=== PATIENT | male | born 1970 | race Two or more races ===

== ENCOUNTER 2016-12-31 15:57 | Emergency (ER) | payer OTHER ==
[~2016-12-31] VITALS: Ht 190.5 cm; Wt 105.2 kg
--- NOTE | 2016-12-31 16:41 | RAD ---
Indication: Trauma to the left hand. Time of exam 1633 hours. 3 views of the left hand were obtained. There is soft tissue swelling along the dorsum of the hand. The metacarpals appear intact. The phalanges are intact. No fractures are seen. The carpus is unremarkable. Impression: Soft tissue swelling. No acute bony abnormality is detected.
--- NOTE | 2016-12-31 16:42 | RAD ---
Indication: Trauma to the left wrist. Time of exam 1632 hours. The distal radius and ulna appear intact. The carpus appears intact and metacarpals are unremarkable. There is dorsal soft tissue swelling. No fractures are seen. Impression: Soft tissue swelling. No acute bony abnormality is detected.
--- NOTE | 2016-12-31 17:00 | PHYS DOC ---
Past Medical History Past Medical History: No Pertinent History Past Surgical History: Other Additional Past Surgical Histo: SX LT HAND SECONDARY TO DEGLOVING MANY YEARS AGO Alcohol Use: None Drug Use: None Adult General Chief Complaint Chief Complaint: HAND PROBLEM HPI HPI Patient is a 46 year old right handed male inmate who presents with left hand tissue infection. Patient reportedly punched his metal bunk bed and 2 weeks ago had a laceration to his third MCP joint. Patient did not seek medical care, gradually noticed tenderness swelling over left hand and worse over dorsal palm. Patient states he tried to stick a needle in it to express pus. He was eventually seen at the [facility] 4 days ago and had x-rays performed and was started on oral antibiotics. Initial x-ray read out as concerning for posterior osteomyelitis. Swelling has progressed since starting oral antibiotics. On exam, patient has remnants of a laceration to left third MCP joint, waxy-appearing skin with desquamation surrounding area with dorsal palm swelling and pain with palpation. Patient has pain with finger movement. Remote jasbir are history of left hand declined and require microvascular surgery. Patient is currently in custody. [] Review of Systems Review of Systems ROS as per HPI. All other ROS are negative. All other systems were reviewed and found to be within normal limits, except as documented in this note. Current Medications Current Medications Current Medications Medications (Trade) Dose Ordered Sig/Aspen Start Time Stop Time Status Last Admin Dose Admin Piperacillin Sod/ Tazobactam Sod (Zosyn) 3.375 gm 1X ONCE 12/31/16 19:15 12/31/16 19:16 DC 12/31/16 19:17 3.375 GM Piperacillin Sod/ Tazobactam Sod 3.375 gm/Dextrose 50 ml @ 100 mls/hr 1X ONCE 12/31/16 19:15 12/31/16 19:44 UNV Vancomycin HCl 2 gm/Sodium Chloride 500 ml @ 250 mls/hr 1X ONCE 12/31/16 19:15 12/31/16 20:51 DC 12/31/16 19:17 250 MLS/HR Allergies Allergies Allergies Coded Allergies Type Severity Reaction Last Updated Verified No Known Drug Allergies 12/31/16 No Physical Exam Physical Exam Constitutional: Well developed, well nourished, no acute distress, non-toxic appearance. [] HENT: Normocephalic, atraumatic, bilateral external ears normal, oropharynx moist, no oral exudates, nose normal. [] Eyes: PERRLA, EOMI, conjunctiva normal, no discharge. [] Neck: Normal range of motion, no tenderness, supple, no stridor. [] Cardiovascular:Heart rate regular rhythm, no murmur [] Lungs & Thorax: Bilateral breath sounds clear to auscultation. [] Extremities: Left hand, remnants of a laceration to left third MCP joint, waxy- appearing skin with desquamation surrounding area with dorsal palm swelling and pain with palpation. Patient has pain with finger movement. Remote jasbir are history of left hand declined and require microvascular surgery. Patient is currently in custody. [] Neurologic: Alert and oriented X 3, Left hand, no motor weakness or loss of sensation. [] Psychologic: Affect normal, judgement normal, mood normal. [] Current Patient Data Vital Signs Vital Signs Date Time Temp Pulse Resp B/P (MAP) Pulse Ox O2 Delivery O2 Flow Rate FiO2 12/31/16 20:30 88 21 100 Room Air 12/31/16 18:52 140/91 (107) 12/31/16 16:21 99.7 99.7 Lab Values Laboratory Tests Test 12/31/16 16:50 White Blood Count 7.1 x10^3/uL (4.0-11.0) Red Blood Count 4.52 x10^6/uL (4.30-5.70) Hemoglobin 14.0 g/dL (13.0-17.5) Hematocrit 40.8 % (39.0-53.0) Mean Corpuscular Volume 90 fL (79-100) Mean Corpuscular Hemoglobin 31 pg (25-35) Mean Corpuscular Hemoglobin Concent 34 g/dL (31-37) Red Cell Distribution Width 13.7 % (11.5-14.5) Platelet Count 432 x10^3/uL (140-400) H Neutrophils (%) (Auto) 70 % (31-73) Lymphocytes (%) (Auto) 21 % (24-48) L Monocytes (%) (Auto) 6 % (0-9) Eosinophils (%) (Auto) 2 % (0-3) Basophils (%) (Auto) 1 % (0-3) Neutrophils # (Auto) 5.0 x10^3uL (1.8-7.7) Lymphocytes # (Auto) 1.5 x10^3/uL (1.0-4.8) Monocytes # (Auto) 0.4 x10^3/uL (0.0-1.1) Eosinophils # (Auto) 0.1 x10^3/uL (0.0-0.7) Basophils # (Auto) 0.1 x10^3/uL (0.0-0.2) Erythrocyte Sedimentation Rate 68 (0-15) H Sodium Level 138 mmol/L (136-145) Potassium Level 3.3 mmol/L (3.5-5.1) L Chloride Level 102 mmol/L (98-107) Carbon Dioxide Level 28 mmol/L (21-32) Anion Gap 8 (6-14) Blood Urea Nitrogen 16 mg/dL (8-26) Creatinine 1.2 mg/dL (0.7-1.3) Estimated GFR (Cockcroft-Gault) 65.8 BUN/Creatinine Ratio 13 (6-20) Glucose Level 101 mg/dL (70-99) H Calcium Level 9.2 mg/dL (8.5-10.1) Total Bilirubin 0.3 mg/dL (0.2-1.0) Aspartate Amino Transferase (AST) 17 U/L (15-37) Alanine Aminotransferase (ALT) 18 U/L (16-63) Alkaline Phosphatase 88 U/L (46-116) C-Reactive Protein, Quantitative 13.1 mg/L (0-3.3) H Total Protein 8.1 g/dL (6.4-8.2) Albumin 3.4 g/dL (3.4-5.0) Albumin/Globulin Ratio 0.7 (1.0-1.7) L Laboratory Tests 12/31/16 16:50 Laboratory Tests 12/31/16 16:50 EKG EKG [] Radiology/Procedures Radiology/Procedures [left wrist/hand x-ray: Soft tissue swelling without apparent bony injury per radiology report.] Course & Med Decision Making Course & Med Decision Making Pertinent Labs and Imaging studies reviewed. (See chart for details) Patient with deep space infection involving left hand. Unfortunately, there is no plastic surgery coverage available at this facility. Anticipate transfer to [facility] for surgical subspecialty care.] Dragon Disclaimer Dragon Disclaimer This electronic medical record was generated, in whole or in part, using a voice recognition dictation system. Departure Departure Impression: Primary Impression: Infection of left hand Disposition: 02 TRANSFER [facility] Condition: STABLE Referrals: NO PCP (PCP) BOO TORREZ DO Dec 31, 2016 17:00
[2016-12-31 17:02] LABS: BASO # 0.1 x10^3/uL (0.0-0.2); BASO % 1 % (0-3); EOS % 2 % (0-3); HEMATOCRIT 40.8 % (39.0-53.0); LYMPH # 1.5 x10^3/uL (1.0-4.8); LYMPH % 21 % (24-48); MEAN CORPUSCULAR HEMOGLOBIN 31 pg (25-35); MEAN CORPUSCULAR HGB CONC 34 g/dL (31-37); MEAN CORPUSCULAR VOLUME 90 fL (79-100); MONO % 6 % (0-9); NEUT % 70 % (31-73); PLATELET COUNT 432 x10^3/uL (140-400); RED BLOOD COUNT 4.52 x10^6/uL (4.30-5.70); RED CELL DISTRIBUTION WIDTH 13.7 % (11.5-14.5); WHITE BLOOD COUNT 7.1 x10^3/uL (4.0-11.0)
[2016-12-31 17:20] LABS: CALCIUM 9.2 mg/dL (8.5-10.1); CREATININE 1.2 mg/dL (0.7-1.3); GFR 65.8; POTASSIUM 3.3 mmol/L (3.5-5.1)
[2016-12-31 17:26] LABS: ALBUMIN 3.4 g/dL (3.4-5.0); ALBUMIN/GLOBULIN RATIO 0.7 (1.0-1.7); C-REACTIVE PROTEIN 13.1 mg/L (0-3.3); TOTAL BILIRUBIN 0.3 mg/dL (0.2-1.0); TOTAL PROTEIN 8.1 g/dL (6.4-8.2)
[2016-12-31 18:52] VITALS: BP 140/91
[2016-12-31] MEDS ORDERED: VANCOMYCIN 2 GM in IV NORMAL SALINE 500ML BAG 500 ML IV ONE (19:15)
[2016-12-31] MEDS ORDERED: PIPERACILLIN/TAZO IV Push 3.375 GM VIAL. IVP ONE (19:15)
[2016-12-31] MEDS ORDERED: PIPERACILLIN/TAZOBACTAM 3.375 GM in IV DEXTROSE 5% 50 ML IV ONE (19:15)
== END 2016-12-31 20:51 | disposition short-term general hospital (02) ==
LOC: ER 15:57 → EEVIPCON 15:57 → ER 20:51
DX: L08.9 Local infection of the skin and subcutaneous tissue, unspecified (principal); S61.412A Laceration without foreign body of left hand, initial encounter; W22.03XA Walked into furniture, initial encounter; Y93.89 Activity, other specified; Y99.8 Other external cause status; Y92.89 Other specified places as the place of occurrence of the external cause
CPT/HCPCS: 36415; 73110; 73130; 80053; 85025; 85651; 86140; 87040; 96365; 96366; 96375; 99285; J2543; J3370; J7040